=== PATIENT | male | born 1955 | race Caucasian/White ===

== ENCOUNTER 2017-11-29 10:45 | Inpatient (IN) ==
--- NOTE | 2017-11-29 11:57 | ED ---
HPI General Chief complaint: Arrhythmia / Palpitations Stated complaint: sob Time Seen by Provider: 11/29/17 11:52 History of Present Illness HPI narrative: 4-year-old male says he is not been feeling well for the last 2-1 /2 weeks. He has noted some increasing dyspnea on exertion. He gets some pressure in the neck area. He gets occasional sharp pain in the chest. He has noticed his symptoms primarily when he has been active and working. He has been doing a lot of work recently but just started having the symptoms the last 2-1/2 weeks. It seems to be getting worse. He has no history of heart disease. He did have a subarachnoid hemorrhage about 15 years ago. He was seen in the emergency department last Wednesday and a CTA at that time showed stable small aneurysm. He is on medication for his blood pressure and cholesterol. He has been taking aspirin recently. He smoked briefly when he was younger but has not smoked for a long time and has no history of heart disease. He has not had any edema or orthopnea Related Data Home Medications Medication Instructions Recorded Confirmed atorvastatin [Lipitor] 40 mg PO DAILY 11/29/17 11/29/17 lansoprazole [Prevacid] 30 mg PO DAILY 11/29/17 11/29/17 lisinopril-hydrochlorothiazide 1 tab PO DAILY 11/29/17 11/29/17 Allergies Allergy/AdvReac Type Severity Reaction Status Date / Time No Known Allergies Allergy Verified 11/29/17 11:00 Review of Systems ROS: all other systems reviewed are negative [facility] Medical History Medical History Barretts esophagus (Acute) Bleeding in brain due to brain aneurysm (Acute) High blood pressure (Acute) High cholesterol (Acute) Surgical History Surgical History H/O inguinal hernia repair (Acute) Hx of tonsillectomy (Acute) Social History Social History Substance History: No History of Abuse Second Hand Smoke Exposure: No Smoking Status: Never smoker How Often Do You Have a Drink Containing Alcohol: Monthly or less Recent Travel in [facility] within the Last 8 Weeks: No Recent Out of Country Travel within the Last 8 Weeks: No Immunization History Tetanus Immunization: <5 Years Exam Narrative Exam Narrative: GENERAL: Well developed male SKIN: Focused skin assessment warm/dry. HEAD: Atraumatic. Normocephalic. EYES: Pupils equal and round. No scleral icterus. No injection or drainage. ENT: No nasal bleeding or discharge. Mucous membranes pink and moist. NECK: Trachea midline. No JVD. CARDIOVASCULAR: Regular rate and rhythm. No murmur appreciated. RESPIRATORY: No accessory muscle use. Clear to auscultation. Breath sounds equal bilaterally. GASTROINTESTINAL: Abdomen soft, non-tender, nondistended. Hepatic and splenic margins not palpable. MUSCULOSKELETAL: No obvious deformities. No clubbing. No cyanosis. No edema. NEUROLOGICAL: Awake and alert. No obvious cranial nerve deficits. Motor grossly within normal limits. Normal speech. PSYCHIATRIC: Appropriate mood and affect; insight and judgment normal. Course Initial Documented Vital Signs Temperature 98 F 11/29/17 10:50 Pulse Rate 82 11/29/17 10:50 Respiratory Rate 20 11/29/17 10:50 Blood Pressure 124/65 11/29/17 10:50 Pulse Oximetry 98 11/29/17 10:50 Last Documented Vital Signs Temperature 98 F 11/29/17 10:50 Pulse Rate 64 11/29/17 13:56 Respiratory Rate 16 11/29/17 13:56 Blood Pressure 125/65 11/29/17 13:56 Pulse Oximetry 98 11/29/17 13:56 Medical Decision Making MDM Narrative Medical decision making narrative: Patient has symptoms which may be related to coronary artery disease he has exertional dyspnea associated with some pressure across his neck. EKG shows sinus rhythm. His d-dimer is elevated at 0.98. A CTA has been ordered and is negative for pulmonary embolus. His troponin is also elevated 0.22. case was discussed with Dr. Leonard who recommends transfer to the main hospital and heparin drip. Pattern of pain is suggestive of unstable angina Medical Screen Exam Complete: Yes Emergency Medical Condition: Yes Differential Diagnosis Differential Diagnosis: Differential includes CHF, coronary artery disease, pulmonary embolus Lab Data Result diagrams: 11/29/17 12:00 11/29/17 12:00 Lab Results 11/29/17 11/29/17 11/29/17 Range/Units 12:00 12:00 12:00 CBC w Diff Auto diff final WBC 6.5 (4.0-11.0) th/mm3 RBC 4.86 (4.50-5.90) mil/mm3 Hgb 14.9 (13.0-17.0) gm/dL Hct 43.2 (39.0-51.0) % MCV 89.0 (80.0-100.0) fL MCH 30.6 (27.0-34.0) pg MCHC 34.4 (32.0-36.0) % RDW 12.7 (11.6-17.2) % Plt Count 147 L (150-450) th/mm3 MPV 10.9 (7.0-11.0) fL Neut % (Auto) 50.6 (16.0-70.0) % Lymph % (Auto) 43.1 (9.0-44.0) % Chambers % (Auto) 4.8 (0.0-8.0) % Eos % (Auto) 1.0 (0.0-4.0) % Baso % (Auto) 0.5 (0.0-2.0) % Neut # (Auto) 3.3 (1.8-7.7) th/mm3 Lymph # (Auto) 2.8 (1.0-4.8) th/mm3 Chambers # (Auto) 0.3 (0.0-0.9) th/mm3 Eos # (Auto) 0.1 (0.0-0.4) th/mm3 Baso # (Auto) 0.0 (0.0-0.2) th/mm3 WBC Differential . Differential Comment . PT 10.8 (9.8-11.6) sec INR 1.1 Ratio APTT 27.9 (24.3-30.1) sec D-Dimer Quant (PE/DVT) 0.98 H (0.00-0.50) mg/L FEU Sodium 138 (136-145) meq/L Potassium 3.8 (3.5-5.1) meq/L Chloride 103 (98-107) meq/L Carbon Dioxide 25.7 (21.0-32.0) meq/L Anion Gap 9 (5-15) meq/L BUN 20 H (7-18) mg/dL Creatinine 1.00 (0.60-1.30) mg/dL Estimated GFR 76 L (>89) mL/min Random Glucose 102 (74-106) mg/dL Calcium 8.7 (8.5-10.1) mg/dL Total Bilirubin 0.6 (0.2-1.0) mg/dL AST 32 (15-37) U/L ALT 31 (12-78) U/L Alkaline Phosphatase 57 (45-117) U/L Troponin I 0.22 H (0.02-0.05) ng/mL B-Natriuretic Peptide (0-100) pg/mL Total Protein 7.3 (6.4-8.2) g/dL Albumin 4.2 (3.4-5.0) g/dL 11/29/17 Range/Units 12:00 CBC w Diff WBC (4.0-11.0) th/mm3 RBC (4.50-5.90) mil/mm3 Hgb (13.0-17.0) gm/dL Hct (39.0-51.0) % MCV (80.0-100.0) fL MCH (27.0-34.0) pg MCHC (32.0-36.0) % RDW (11.6-17.2) % Plt Count (150-450) th/mm3 MPV (7.0-11.0) fL Neut % (Auto) (16.0-70.0) % Lymph % (Auto) (9.0-44.0) % Chambers % (Auto) (0.0-8.0) % Eos % (Auto) (0.0-4.0) % Baso % (Auto) (0.0-2.0) % Neut # (Auto) (1.8-7.7) th/mm3 Lymph # (Auto) (1.0-4.8) th/mm3 Chambers # (Auto) (0.0-0.9) th/mm3 Eos # (Auto) (0.0-0.4) th/mm3 Baso # (Auto) (0.0-0.2) th/mm3 WBC Differential Differential Comment PT (9.8-11.6) sec INR Ratio APTT (24.3-30.1) sec D-Dimer Quant (PE/DVT) (0.00-0.50) mg/L FEU Sodium (136-145) meq/L Potassium (3.5-5.1) meq/L Chloride (98-107) meq/L Carbon Dioxide (21.0-32.0) meq/L Anion Gap (5-15) meq/L BUN (7-18) mg/dL Creatinine (0.60-1.30) mg/dL Estimated GFR (>89) mL/min Random Glucose (74-106) mg/dL Calcium (8.5-10.1) mg/dL Total Bilirubin (0.2-1.0) mg/dL AST (15-37) U/L ALT (12-78) U/L Alkaline Phosphatase (45-117) U/L Troponin I (0.02-0.05) ng/mL B-Natriuretic Peptide 15 (0-100) pg/mL Total Protein (6.4-8.2) g/dL Albumin (3.4-5.0) g/dL Imaging Data Radiologist's impression: Chest X-Ray 11/29/17 11:52 CONCLUSION: Negative examination. Chest CTA 11/29/17 13:14 CONCLUSION: 1. Isolated, subpleural cyst posteriorly in the right upper lung. Lungs are otherwise clear. 2. No pulmonary embolus. 3. 7 mm right renal artery aneurysm. Discharge Plan Discharge Disposition Patient Disposition: 30 Still Patient Discharge Details Diagnosis: Angina pectoris, unstable Physicians Team ED Provider: Harish Jacinto Primary Care Provider: Ervin Wright Rxs /Orders / Referrals /Forms Prescriptions: No Action atorvastatin [Lipitor] 40 mg Tablet 40 mg PO DAILY RF: 0 lisinopril-hydrochlorothiazide 20-12.5 mg Tablet 1 tab PO DAILY RF: 0 lansoprazole [Prevacid] 30 mg Capsule,Delayed Release(Dr/Ec) 30 mg PO DAILY RF: 0 Discharge Interventions Interventions: Vital Signs Last Done: 11/29/17 11:07 Status ED Status: With Doctor
[2017-11-29 12:11] LABS: Baso % (Auto) 0.5 % (0.0-2.0); Eos # (Auto) 0.1 th/mm3 (0.0-0.4); Hematocrit 43.2 % (39.0-51.0); Hemoglobin 14.9 gm/dL (13.0-17.0); Lymph # (Auto) 2.8 th/mm3 (1.0-4.8); Lymph % (Auto) 43.1 % (9.0-44.0); Mean Corpuscular HGB Conc 34.4 % (32.0-36.0); Mean Corpuscular Hemoglobin 30.6 pg (27.0-34.0); Mean Platelet Volume 10.9 fL (7.0-11.0); Mono # (Auto) 0.3 th/mm3 (0.0-0.9); Mono % (Auto) 4.8 % (0.0-8.0); Neut # (Auto) 3.3 th/mm3 (1.8-7.7); Neut % (Auto) 50.6 % (16.0-70.0); Platelet Count 147 th/mm3 (150-450); Red Blood Count 4.86 mil/mm3 (4.50-5.90); Red Cell Distribution Width 12.7 % (11.6-17.2); White Blood Count 6.5 th/mm3 (4.0-11.0)
[2017-11-29 12:13] LABS: Chloride 103 meq/L (98-107); Potassium 3.8 meq/L (3.5-5.1); Sodium 138 meq/L (136-145)
[2017-11-29 12:16] LABS: Calcium 8.7 mg/dL (8.5-10.1)
[2017-11-29 12:17] LABS: Albumin 4.2 g/dL (3.4-5.0); Anion Gap 9 meq/L (5-15); Blood Urea Nitrogen 20 mg/dL (7-18); Carbon Dioxide 25.7 meq/L (21.0-32.0); Glucose,Random 102 mg/dL (74-106)
[2017-11-29 12:20] LABS: Alanine Aminotransferase 31 U/L (12-78); Aspartate Aminotransferase 32 U/L (15-37); Glomerular Filtration Rate 76 mL/min (>89)
[2017-11-29 12:22] LABS: Total Protein 7.3 g/dL (6.4-8.2)
[2017-11-29 12:23] LABS: Alkaline Phosphatase 57 U/L (45-117)
[2017-11-29 12:25] LABS: Troponin I 0.22 ng/mL (0.02-0.05)
--- NOTE | 2017-11-29 12:38 | XR ---
EXAM DATE: 11/29/2017 11:52 AM EDT AGE/SEX: 61 years / Male INDICATIONS: Chest pain and shortness of breath for two weeks. CLINICAL DATA: This is the patient's initial encounter. Patient reports that signs and symptoms have been present for 2 weeks and indicates a pain score of 5/10. MEDICAL/SURGICAL HISTORY: . Aneurysm, intracranial. None. COMPARISON: None. FINDINGS: 2 frontal views of the chest demonstrate the lungs to be symmetrically aerated without evidence of ma ss, infiltrate or effusion. The cardiomediastinal contours are unremarkable. Osseous structures are intact. CONCLUSION: Negative examination. Electronically signed by: Dave Victor MD 11/29/2017 12:37 PM EDT
[2017-11-29 12:53] LABS: Activated Partial Thrombo Time 27.9 sec (24.3-30.1); INR 1.1 Ratio; Prothrombin Time 10.8 sec (9.8-11.6)
[2017-11-29 13:03] LABS: D-Dimer 0.98 mg/L FEU (0.00-0.50)
--- NOTE | 2017-11-29 14:47 | CT ---
EXAM DATE: 11/29/2017 1:29 PM EDT AGE/SEX: 61 years / Male INDICATIONS: Short of breath. CLINICAL DATA: This is the patient's initial encounter. Patient reports that signs and symptoms have been present for 1 day and indicates a pain score of 0/10. MEDICAL/SURGICAL HISTORY: Aneurysm, intracranial. Hypertension. Hypercholesterolemia. Castro's esophagus. Inguinal hernia repair. Tonsillectomy. RADIATION DOSE: 20.63 CTDI (mGy) COMPARISON: . TECHNIQUE: Volumetric scanning was performed using a multi-row detector CT scanner during bolus infu marjorie of 65 ml Omnipaque 350 (iohexol) nonionic water-soluble contrast as a single exam dose. The kwan a was post processed with a variety of visualization algorithms including full volume maximum intensi ty projection and sliding thin slab reformation. Using automated exposure control and adjustment of the mA and/or kV according to patient size, radiation dose was kept as low as reasonably achievable t o obtain optimal diagnostic quality images. DICOM format image data is available electronically for review and comparison. FINDINGS: Pulmonary Arteries: No filling defects are seen in the pulmonary arteries out to the subsegmental ve ssels. The left and right pulmonary arteries are normal in diameter. Lung: Subpleural cyst posteriorly in a perifissural distribution in the right upper lobe. Lungs are otherwise clear.. Effusion: None. Mediastinum: No evidence of mediastinal or hilar adenopathy. Other: The axilla is unremarkable. Also noted is a small, 7 mm right renal artery aneurysm. Main and accessory renal arteries bilaterally.. CONCLUSION: 1. Isolated, subpleural cyst posteriorly in the right upper lung. Lungs are otherwise clear. 2. No pulmonary embolus. 3. 7 mm right renal artery aneurysm. Electronically signed by: Mulugeta Chirinos MD 11/29/2017 2:46 PM EDT
[2017-11-29] MEDS ORDERED: Heparin 10,000 UNITS/10 ML Vial (for IV use) IV.PUSH STA (15:24)
[2017-11-29] MEDS ORDERED: Heparin Drip 25,000 UNIT/250 ML BAG IV.CONT PRN (15:24)
--- NOTE | 2017-11-29 17:10 | P.HP ---
History of Present Illness Service: [facility] hospitalist Primary Care Physician: Ervin Wright MD Chief Complaint: chest pain with sob History of Present Illness: HPI narrative: 61-year-old male says he is not been feeling well for the last 2- 1/2 weeks. He has noted some increasing dyspnea on exertion. He gets some pressure in the neck area. He gets occasional sharp pain in the chest. He has noticed his symptoms primarily when he has been active and working. He has been doing a lot of work recently but just started having the symptoms the last 2-1/2 weeks. 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 It seems to be getting worse. He has no history of heart disease. He did have a subarachnoid hemorrhage about 15 years ago. He was seen in the emergency department last Wednesday and a CTA at that time showed stable small aneurysm. He is on medication for his blood pressure and cholesterol. He has been taking aspirin recently. He smoked briefly when he was younger but has not smoked for a long time and has no history of heart disease. He has not had any edema or orthopnea but did have SOB and also some radiation to left neck , pain described as crampy,pressure like. In er had CTA thorax negative for PE but he did have elevated troponin level 2.2 ,cardiology notified and was started on heparin with cath planned for tomorrow. - Diagnosis (1) Chest pain (2) Hypertension (3) Hyperlipidemia Inpatient Certification: I certify that the inpatient services were ordered in accordance with Medicare regulations governing the order. This includes certification that hospital inpatient services are reasonable and necessary and in the case of services not specified as inpatient-only under 42 CFR 419.22(n), that they are appropriately provided as inpatient services in accordance to with the 2-midnight benchmark under 43 CFR 412.3(e) Review of Systems All other systems reviewed negative except as stated in HPI PMFSH - History History Provided By: Patient - Medical History Medical History: Medical History (Last Reviewed 11/29/17 @ 17:05 by Damien Dykes MD) Barretts esophagus Bleeding in brain due to brain aneurysm High blood pressure High cholesterol - Surgical History Surgical History: Surgical History (Last Reviewed 11/29/17 @ 17:05 by Damien Dykes MD) H/O inguinal hernia repair Hx of tonsillectomy - Tobacco History Second Hand Smoke Exposure: No Tobacco Use In Past 30 Days: No Smoking Status: Never smoker - Alcohol History How Often Do You Have a Drink Containing Alcohol: Monthly or less - Substance Use History Substance History: No History of Abuse - Travel History Recent Travel in the [place] Within the Last 8 Weeks: No Recent Travel Out of the Country Within the Last 8 Weeks: No - Immunization History Tetanus Immunization: <5 Years Medications and Allergies Active Medications: Active Medications Heparin Sodium/Dextrose (Heparin/D5w 25,000 U/250 Ml) 25,000 unit in 250 mls @ 0 mls/hr IV.CONT TITRATE PRN; Protocol PRN Reason: Per Protocol Last Admin: 11/29/17 15:44 Dose: 1,000 units/hr, 10 mls/hr Sodium Chloride (Ns Flush) 2 ml IV.FLUSH UNSCH PRN PRN Reason: FLUSH AFTER USING IV ACCESS Allergies Allergy/AdvReac Type Severity Reaction Status Date / Time No Known Allergies Allergy Verified 11/29/17 11:00 Home Medications Medication Instructions Recorded Confirmed Type atorvastatin [Lipitor] 40 mg PO DAILY 11/29/17 11/29/17 History lansoprazole [Prevacid] 30 mg PO DAILY 11/29/17 11/29/17 History lisinopril-hydrochlorothiazide 1 tab PO DAILY 11/29/17 11/29/17 History Exam Vital signs: Vital Signs 11/29/17 10:50 11/29/17 11:07 11/29/17 11:52 Temperature 98 F Pulse Rate 82 68 Respiratory Rate 20 16 Blood Pressure 124/65 121/68 Pulse Oximetry 98 98 98 11/29/17 13:56 11/29/17 16:19 Temperature Pulse Rate 64 59 L Respiratory Rate 16 16 Blood Pressure 125/65 114/74 Pulse Oximetry 98 98 Intake & Output 11/28/17 11/29/17 11/29/17 18:59 06:59 18:59 Weight 99.8 kg Narrative: GENERAL: SKIN: Warm and dry. HEAD: Atraumatic. Normocephalic. EYES: Pupils equal and round. No scleral icterus. No injection or drainage. ENT: No nasal bleeding or discharge. Mucous membranes pink and moist. NECK: Trachea midline. No JVD. CARDIOVASCULAR: Regular rate and rhythm. RESPIRATORY: No accessory muscle use. Clear to auscultation. Breath sounds equal bilaterally. GASTROINTESTINAL: Abdomen soft, non-tender, nondistended. Hepatic and splenic margins not palpable. MUSCULOSKELETAL: Extremities without clubbing, cyanosis, or edema. No obvious deformities. NEUROLOGICAL: Awake and alert. No obvious cranial nerve deficits. Motor grossly within normal limits. Five out of 5 muscle strength in the arms and legs. Normal speech. PSYCHIATRIC: Appropriate mood and affect; insight and judgment normal. Results - Labs CBC & Chem 7: 11/29/17 12:00 11/29/17 12:00 Labs: Laboratory Results - last 24 hr 11/29/17 11/29/17 11/29/17 12:00 12:00 12:00 CBC w Diff Auto diff final WBC 6.5 RBC 4.86 Hgb 14.9 Hct 43.2 MCV 89.0 MCH 30.6 MCHC 34.4 RDW 12.7 Plt Count 147 L MPV 10.9 Neut % (Auto) 50.6 Lymph % (Auto) 43.1 Ransom % (Auto) 4.8 Eos % (Auto) 1.0 Baso % (Auto) 0.5 Neut # (Auto) 3.3 Lymph # (Auto) 2.8 Ransom # (Auto) 0.3 Eos # (Auto) 0.1 Baso # (Auto) 0.0 WBC Differential . Differential Comment . PT 10.8 INR 1.1 APTT 27.9 D-Dimer Quant (PE/DVT) 0.98 H Sodium 138 Potassium 3.8 Chloride 103 Carbon Dioxide 25.7 Anion Gap 9 BUN 20 H Creatinine 1.00 Estimated GFR 76 L Random Glucose 102 Calcium 8.7 Total Bilirubin 0.6 AST 32 ALT 31 Alkaline Phosphatase 57 Troponin I 0.22 H B-Natriuretic Peptide Total Protein 7.3 Albumin 4.2 11/29/17 12:00 CBC w Diff WBC RBC Hgb Hct MCV MCH MCHC RDW Plt Count MPV Neut % (Auto) Lymph % (Auto) Ransom % (Auto) Eos % (Auto) Baso % (Auto) Neut # (Auto) Lymph # (Auto) Ransom # (Auto) Eos # (Auto) Baso # (Auto) WBC Differential Differential Comment PT INR APTT D-Dimer Quant (PE/DVT) Sodium Potassium Chloride Carbon Dioxide Anion Gap BUN Creatinine Estimated GFR Random Glucose Calcium Total Bilirubin AST ALT Alkaline Phosphatase Troponin I B-Natriuretic Peptide 15 Total Protein Albumin - Imaging Impressions Chest X-Ray 11/29/17 11:52 CONCLUSION: Negative examination. Chest CTA 11/29/17 13:14 CONCLUSION: 1. Isolated, subpleural cyst posteriorly in the right upper lung. Lungs are otherwise clear. 2. No pulmonary embolus. 3. 7 mm right renal artery aneurysm. Caprini VTE Risk Assessment Caprini VTE Risk Assessment: Moderate/High Risk (score >= 2) Caprini Risk Assessment Model: Point Value = 1 Point Value = 2 Point Value = 3 Point Value = 5 Age 41-60 Minor surgery BMI > 25 kg/m2 Swollen legs Varicose veins or History of unexplained or recurrent spontaneous Oral contraceptives or hormone replacement Sepsis (< 1 month) Serious lung disease, including pneumonia (< 1 month) Abnormal pulmonary function Acute myocardial infarction Congestive heart failure (< 1 month) History of inflammatory bowel disease Medical patient at bed rest Age 61-74 Arthroscopic surgery Major open surgery (> 45 min) Laparoscopic surgery (> 45 min) Malignancy Confined to bed (> 72 hours) Immobilizing plaster cast Central venous access Age >= 75 History of VTE Family history of VTE Factor V Leiden Prothrombin [id number] Lupus anticoagulant Anticardiolipin antibodies Elevated serum homocysteine Heparin-induced thrombocytopenia Other congenital or acquired thrombophilia Stroke (< 1 month) Elective arthroplasty Hip, pelvis, or leg fracture Acute spinal cord injury (< 1 month) Prophylaxis Regimen: Total Risk Factor Score Risk Level Prophylaxis Regimen 0-1 Low Early ambulation 2 Moderate Order ONE of the following: *Sequential Compression Device (SCD) *Heparin 5000 units SQ BID 3-4 Higher Order ONE of the following medications: *Heparin 5000 units SQ TID *Enoxaparin/Lovenox 40 mg SQ daily (WT < 150 kg, CrCl > 30 mL/min) *Enoxaparin/Lovenox 30 mg SQ daily (WT < 150 kg, CrCl > 10-29 mL/min) *Enoxaparin/Lovenox 30 mg SQ BID (WT < 150 kg, CrCl > 30 mL/min) AND/OR *Sequential Compression Device (SCD) 5 or more Highest Order ONE of the following medications: *Heparin 5000 units SQ TID (Preferred with Epidurals) *Enoxaparin/Lovenox 40 mg SQ daily (WT < 150 kg, CrCl > 30 mL/min) *Enoxaparin/Lovenox 30 mg SQ daily (WT < 150 kg, CrCl > 10-29 mL/min) *Enoxaparin/Lovenox 30 mg SQ BID (WT < 150 kg, CrCl > 30 mL/min) AND *Sequential Compression Device (SCD) Assessment and Plan - Assessment (1) Chest pain Code(s): R07.9 - Chest pain, unspecified Status: Acute Plan: for CATH in am no bed available in main will place in ICU consult cardiology they are already aware continue heparin add ntg paste. (2) Hypertension Code(s): I10 - Essential (primary) hypertension Status: Acute Plan: continue home meds (3) Hyperlipidemia Code(s): E78.5 - Hyperlipidemia, unspecified Status: Acute Plan: continue home med - Plan further plan as case develops Code Status: full Discussed Condition With: patient
[2017-11-29] MEDS ORDERED: Morphine Sulfate Inj 2 MG/ML Vial IV.PUSH PRN (17:16)
[2017-11-29] MEDS ORDERED: Acetaminophen 325 MG Tablet PO PRN (17:16)
[2017-11-29] MEDS ORDERED: Bisacodyl 10 MG Supp RECTAL PRN (17:16)
[2017-11-29 19:09] LABS: Troponin I 0.2 ng/mL (0.02-0.05)
[2017-11-29] MEDS: Senna/Docusate Sodium 8.6/50 MG Tablet PO SCH (20:44)
[2017-11-29 23:03] LABS: Troponin I 0.21 ng/mL (0.02-0.05)
[2017-11-30] MEDS ORDERED: Chlorhexidine Gluconate 2% 1 Pack (2 Cloths) TOPICAL PRN (04:00)
[2017-11-30] MEDS ORDERED: Chlorhexidine Gluconate 2% 1 Pack (2 Cloths) TOPICAL SCH (04:00)
[2017-11-30 04:58] LABS: Hematocrit 41.5 % (39.0-51.0); Hemoglobin 14.7 gm/dL (13.0-17.0); Mean Corpuscular HGB Conc 35.4 % (32.0-36.0); Mean Corpuscular Hemoglobin 31.1 pg (27.0-34.0); Mean Corpuscular Volume 87.8 fL (80.0-100.0); Mean Platelet Volume 10.5 fL (7.0-11.0); Platelet Count 146 th/mm3 (150-450); Red Blood Count 4.73 mil/mm3 (4.50-5.90); Red Cell Distribution Width 12.7 % (11.6-17.2); White Blood Count 6.7 th/mm3 (4.0-11.0)
[2017-11-30 05:15] LABS: Troponin I 0.19 ng/mL (0.02-0.05)
--- NOTE | 2017-11-30 08:26 | P.CONCA ---
History of Present Illness Primary Care Provider: Ervin Wright MD Chief Complaint: chest pain with sob History of Present Illness: 61-year-old male with a past medical history of HTN, HLD, GERD, and spontaneous intracranial aneurysmal bleeding about 15 years ago. The patient presented for chest tightness and shortness of breath. The patient states that 3 weeks ago he was able to move 15 bags of concrete with no issues or symptoms. He states for the past 2-1/2 weeks he has been having chest tightness and shortness of breath with any kind of exertion, for instance he can no longer move one bag of concrete without symptoms. He states symptoms last longer than 5 minutes and are relieved with rest. Troponins approximately 0.2 x 4. EKG with NSR. Chest CT with no intrathoracic process including PE. Patient reports no prior intervention to intracranial aneurysm and no further bleeding issues since blood pressure has been controlled. 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 Review of Systems All other systems reviewed negative except as stated in HPI PMFSH - History History Provided By: Patient - Medical History Medical History: Medical History (Last Reviewed 11/29/17 @ 17:05 by Damien Dykes MD) Barretts esophagus Bleeding in brain due to brain aneurysm High blood pressure High cholesterol - Surgical History Surgical History: Surgical History (Last Reviewed 11/29/17 @ 17:05 by Damien Dykes MD) H/O inguinal hernia repair Hx of tonsillectomy - Tobacco History Second Hand Smoke Exposure: No Tobacco Use In Past 30 Days: No Smoking Status: Former smoker - Alcohol History How Often Do You Have a Drink Containing Alcohol: 2 to 3 times a week - Substance Use History Substance History: No History of Abuse - Travel History Recent Travel in the [place] Within the Last 8 Weeks: No Recent Travel Out of the Country Within the Last 8 Weeks: No - Immunization History Tetanus Immunization: <5 Years Hx Influenza Vaccine This Season: No Medications and Allergies Allergies Allergy/AdvReac Type Severity Reaction Status Date / Time No Known Allergies Allergy Verified 11/29/17 11:00 Home Medications Medication Instructions Recorded Confirmed Type atorvastatin [Lipitor] 40 mg PO DAILY 11/29/17 11/29/17 History lansoprazole [Prevacid] 30 mg PO DAILY 11/29/17 11/29/17 History lisinopril-hydrochlorothiazide 1 tab PO DAILY 11/29/17 11/29/17 History Active Medications: Active Medications Acetaminophen (Tylenol) 650 mg PO Q6H PRN PRN Reason: PAIN 1-5AND/OR FEVER >101F Al Hydroxide/Mg Hydroxide (Milk Of Magnesia Liq) 30 ml PO Q12H PRN PRN Reason: Mild Constipation Atorvastatin Calcium (Lipitor) 40 mg PO DAILY [facility] Bisacodyl (Dulcolax Supp) 10 mg RECTAL DAILY PRN PRN Reason: SEVERE CONSITIPATION Chlorhexidine Gluconate (Chlorhexidine 2% Cloth) 3 pack TOPICAL DAILY@0400 [facility] Stop: 12/05/17 03:59 Last Admin: 11/30/17 05:09 Dose: 3 pack Chlorhexidine Gluconate (Chlorhexidine 2% Cloth) 3 pack TOPICAL DAILY@0400 PRN PRN Reason: Extra cloth needed Stop: 12/05/17 03:59 Hydrochlorothiazide (Microzide) 12.5 mg PO DAILY [facility] Heparin Sodium/Dextrose (Heparin/D5w 25,000 U/250 Ml) 25,000 unit in 250 mls @ 0 mls/hr IV.CONT TITRATE PRN; Protocol PRN Reason: Per Protocol Last Admin: 11/29/17 15:44 Dose: 1,000 units/hr, 10 mls/hr Lactulose (Lactulose Liq) 30 ml PO DAILY PRN PRN Reason: SEVERE CONSITIPATION Lisinopril (Prinivil) 20 mg PO DAILY [facility] Morphine Sulfate (Morphine Inj) 2 mg IV.PUSH Q4H PRN PRN Reason: PAIN SCALE 6 TO 10 Nitroglycerin (Nitro-Bid 2% Oint) 1 inch TOPICAL Q6HR [facility] Last Admin: 11/30/17 05:43 Dose: 1 inch Ondansetron HCl (Zofran Inj) 4 mg IV.PUSH Q6H PRN PRN Reason: NAUSEA OR VOMITING Pantoprazole Sodium (Protonix) 40 mg PO DAILY [facility] Senna/Docusate Sodium (Natalia-Colace) 1 tab PO BID [facility] Last Admin: 11/29/17 20:44 Dose: 1 tab Sennosides (Senokot) 17.2 mg PO Q12H PRN PRN Reason: Moderate Constipation Sodium Chloride (Ns Flush) 2 ml IV.FLUSH PRN PRN PRN Reason: FLUSH AFTER USING IV ACCESS Sodium Chloride (Ns Flush) 2 ml IV.FLUSH BID TAMIKA Last Admin: 11/29/17 20:44 Dose: Not Given Exam Vital signs: Vital Signs 11/29/17 10:50 11/29/17 11:07 11/29/17 11:52 Temperature 98 F Pulse Rate 82 68 Respiratory Rate 20 16 Blood Pressure 124/65 121/68 Pulse Oximetry 98 98 98 11/29/17 13:56 11/29/17 16:19 11/29/17 18:00 Temperature Pulse Rate 64 59 L 72 Respiratory Rate 16 16 23 Blood Pressure 125/65 114/74 124/69 Pulse Oximetry 98 98 96 11/29/17 19:00 11/29/17 19:25 11/29/17 20:00 Temperature 98.9 F Pulse Rate 72 64 Respiratory Rate 17 25 H Blood Pressure 119/67 142/69 H Pulse Oximetry 97 97 96 11/29/17 21:00 11/29/17 22:00 11/29/17 23:00 Temperature Pulse Rate 62 60 56 L Respiratory Rate 22 23 19 Blood Pressure 135/62 111/53 L 116/72 Pulse Oximetry 96 11/30/17 00:00 11/30/17 01:00 11/30/17 02:00 Temperature 98.0 F Pulse Rate 54 L 65 66 Respiratory Rate 22 16 16 Blood Pressure 120/67 108/62 108/62 Pulse Oximetry 97 96 11/30/17 03:00 11/30/17 04:00 11/30/17 05:00 Temperature 97.7 F Pulse Rate 54 L 52 L 54 L Respiratory Rate 19 18 17 Blood Pressure 111/67 108/62 118/75 Pulse Oximetry 96 96 96 11/30/17 06:00 Temperature Pulse Rate 60 Respiratory Rate 26 H Blood Pressure 110/65 Pulse Oximetry Intake & Output 11/29/17 11/30/17 11/30/17 18:59 06:59 18:59 Intake Total 240 / 240 Output Total 650 / 650 Balance 240 / 240 -650 / -650 Weight 217 lb 6.012 oz 217 lb 13.067 oz 217 lb 2.485 oz Intake: Oral 240 / 240 Output: Urine 650 / 650 Other: Date of Last Bowel Movement 11/29/17 11/29/17 Weight On Admission 220 lb 0.341 oz Narrative: GENERAL: Well-developed well-nourished. In no acute distress. NECK: No carotid bruits. No JVD. CARDIOVASCULAR: Regular rate and rhythm. No murmur appreciated. RESPIRATORY: No accessory muscle use. Clear to auscultation. Breath sounds equal bilaterally. MUSCULOSKELETAL: No clubbing or cyanosis. No edema. NEUROLOGICAL: Awake and alert. Normal speech. Results 11/30/17 04:42 11/29/17 12:00 Cardiac Enzymes 11/29/17 11/29/17 11/29/17 Range/Units 12:00 12:00 18:11 AST 32 (15-37) U/L Troponin I 0.22 H 0.20 H (0.02-0.05) ng/mL B-Natriuretic Peptide 15 (0-100) pg/mL 11/29/17 11/30/17 Range/Units 22:30 04:42 AST (15-37) U/L Troponin I 0.21 H 0.19 H (0.02-0.05) ng/mL B-Natriuretic Peptide (0-100) pg/mL Coagulation 11/29/17 11/29/17 11/29/17 Range/Units 12:00 12:00 18:11 PT 10.8 (9.8-11.6) sec APTT 27.9 64.6 H D (24.3-30.1) sec B-Natriuretic Peptide 15 (0-100) pg/mL 11/30/17 11/30/17 Range/Units 00:30 04:42 PT (9.8-11.6) sec APTT 47.1 H D 52.9 H (24.3-30.1) sec B-Natriuretic Peptide (0-100) pg/mL CBC 11/29/17 11/30/17 Range/Units 12:00 04:42 WBC 6.5 6.7 (4.0-11.0) th/mm3 RBC 4.86 4.73 (4.50-5.90) mil/mm3 Hgb 14.9 14.7 (13.0-17.0) gm/dL Hct 43.2 41.5 (39.0-51.0) % Plt Count 147 L 146 L (150-450) th/mm3 Neut # (Auto) 3.3 (1.8-7.7) th/mm3 Lymph # (Auto) 2.8 (1.0-4.8) th/mm3 [place] # (Auto) 0.3 (0.0-0.9) th/mm3 Eos # (Auto) 0.1 (0.0-0.4) th/mm3 Baso # (Auto) 0.0 (0.0-0.2) th/mm3 Comprehensive Metabolic Panel 11/29/17 Range/Units 12:00 Sodium 138 (136-145) meq/L Potassium 3.8 (3.5-5.1) meq/L Chloride 103 (98-107) meq/L Carbon Dioxide 25.7 (21.0-32.0) meq/L BUN 20 H (7-18) mg/dL Creatinine 1.00 (0.60-1.30) mg/dL Calcium 8.7 (8.5-10.1) mg/dL AST 32 (15-37) U/L ALT 31 (12-78) U/L Alkaline Phosphatase 57 (45-117) U/L Total Protein 7.3 (6.4-8.2) g/dL Albumin 4.2 (3.4-5.0) g/dL Intake and Output 11/29/17 11/30/17 11/30/17 22:59 06:59 14:59 Intake Total 240 / 240 Output Total 650 / 650 Balance 240 / 240 -650 / -650 Intake: Oral 240 / 240 Output: Urine 650 / 650 Other: Date of Last Bowel Movement 11/29/17 11/29/17 Weight 217 lb 6.012 oz 217 lb 13.067 oz 217 lb 2.485 oz Weight On Admission 220 lb 0.341 oz Patient Weight 12/01/17 06:59 Weight 217 lb 2.485 oz - Imaging and Cardiology Imaging: Impressions Chest X-Ray 11/29/17 11:52 CONCLUSION: Negative examination. Chest CTA 11/29/17 13:14 CONCLUSION: 1. Isolated, subpleural cyst posteriorly in the right upper lung. Lungs are otherwise clear. 2. No pulmonary embolus. 3. 7 mm right renal artery aneurysm. Assessment and Plan - Plan 61-year-old male with a past medical history of HTN, HLD, GERD, and spontaneous intracranial aneurysmal bleeding about 15 years ago who presented for exertional chest tightness and shortness of breath. Typical anginal pain with elevated troponin: Probable NSTEMI. Continue heparin GTT. N.p.o. for LHC today. Contacted Dr. Morton with neurosurgery regarding aneurysm and need for LHC, can proceed with left heart cath is normal from neurosurgery perspective. Discussed Condition With: Patient, Dr. Leonard - Attending Attestation agree with above PCI proximal and distal RCA DOC asa plavix BB statin DC planning
[2017-11-30] MEDS: Senna/Docusate Sodium 8.6/50 MG Tablet PO SCH (08:33)
[2017-11-30] MEDS ORDERED: Lisinopril 20 MG Tablet PO SCH (09:00)
[2017-11-30] MEDS ORDERED: Heparin/NS PF Inj 1,000 ML ONE (10:58)
[2017-11-30] MEDS ORDERED: Heparin 10,000 UNITS/10 ML Vial (for IV use) ONE (10:58)
[2017-11-30] MEDS ORDERED: fentaNYL Citrate Inj 100 MCG/2 ML Ampul ONE (10:58)
[2017-11-30 11:25] VITALS: RESP 20
[2017-11-30] MEDS ORDERED: Sodium Chlor 0.9% Inj 250 ML IV.SIG ONE (11:54)
[2017-11-30] MEDS ORDERED: Misc Info for Pharmacy OTHER STA (11:54)
[2017-11-30] MEDS ORDERED: Atropine Inj 1 MG/ML Vial IV.PUSH PRN (11:54)
--- NOTE | 2017-11-30 12:03 | P.PCN ---
Date of procedure: 11/30/17 Pre-op diagnosis: Non-ST elevation myocardial infarction Procedure: Procedures performed: 1. Fluoroscopy with interpretation 2. Coronary angiography 3. Percutaneous coronary intervention with drug-eluting stents to the proximal and distal right coronary artery Methods: Risks, benefits, and alternatives were discussed with the patient. Patient understood consented to the procedure. Patient was brought into the catheterization lab and placed on catheterization table. Right wrist was prepped and draped in sterile fashion. Right wrist was anesthetized with 2% lidocaine. Right radial artery was cannulated and a 6 Lao 7 cm sheath was placed without difficulty. 200 mcg of intra-arterial nitroglycerin and 5000 units of intravenous heparin was administered. Coronary angiography: 1. Left main coronary has 30% stenosis in the proximal to mid segment 2. Left anterior descending cord is large caliber size vessel with a large diagonal branch which has only minor luminal irregularities 3. Left circumflex gives rise to a large ramus intermedius branch is widely patent there is a small obtuse marginal branch does appear to have a chronic total occlusion there is left to left collaterals present. 4. The right coronary is very large dominant vessel there is a 99% stenosis in the proximal segment and a 90% stenosis in the distal right coronary artery just prior to the bifurcation of the posterior descending branch. Next Percutaneous coronary intervention: Right coronary circulation was selectively engaged with 6 Lao JR 5 guide catheter. 0.014 inch 180 cm Terumo run through wire was navigated down to the distal posterior descending branch. Angiomax was administered throughout the entire procedure to maintain appropriate anticoagulation. A 3.5 x 12 mm Rx you for balloon was deployed in the proximal right coronary artery a 3.0 x 12 mm Rx you for balloon was deployed in the distal right coronary artery repeat angiography showed LINH-3 flow but severe residual stenosis. A 2.75 x 22 mm Rx resolute Everardo stent was advanced onto the distal right coronary artery extending into the posterior descending branch and deployed to 14 aleksander. Repeat angiography showed no residual stenosis with LINH-3 flow. A 5.0 x 22 mm Rx resolute Everardo stent was then deployed in the proximal right coronary artery to 14 ale[place]ander. Repeat angiography showed no residual stenosis with LINH-3 flow. Left coronary circulation was slightly engaged a 6 Lao XB 3.5 guide catheter. A 0.014 280 cm tumor want to wire navigated down to the first obtuse marginal branch several brief attempts were made to see if we could cross the occlusion. Was not entirely clear if there was a small channel there. After several times that it appears that this is a chronic occlusion without a channel and that is collateralized with left to left collateralization. Conclusions: 1. Severe two-vessel coronary disease involving the right coronary artery and first obtuse marginal branch 2. Successful percutaneous coronary intervention of the right coronary artery with 2 drug-eluting stents 3. Chronic occlusion of the first obtuse marginal branch Plan: Patient will be monitored closely for any postprocedural complications. Hopefully this will translate well to symptomatic improvement. Patient be continued on aspirin, Plavix, beta-jenny, and statin therapy. Patient is on angiotensin-converting enzyme inhibitor. We will discontinue nitrate therapy for now, unless the patient develops anginal symptoms related to the chronic occlusion. At this point it is a small caliber size vessel and appears to be chronic and therefore no need for any aggressive intervention. If the patient has residual symptoms despite aggressive guideline directed medical therapy, we can make an attempt to cross through the short occlusion, but at this time there is no indication to do so. If the patient does well throughout the day, there is a chance we may be able to discharge him later today with outpatient follow-up.
--- NOTE | 2017-11-30 12:17 | CATHPROC ---
[employer] HIS Report Study Information Study Number Admission Scheduled Start Study Start [id number] Nov 29 2017 3:37PM 11/30/2017 Nov 30 2017 10:44AM [place] [facility] Cardiac Pacer/ICD Admit Source Facility Department Emergency department [facility] - Print Production Manager Physician and Clinical Staff Initial Abelino Andrade Instructional Supervisor Deloris Savage,Demetri Galeano RN Recorder Carmen Acosta,BUILDING MAINTENANCE SUPERVISOR TECH2 Scrub Blanca Daley,ASSEMBLER TRACTOR TECH2 Scrub Aylin Cross,ELIUD Procedures Performed Procedure Location (Site) Vessel Name Coronary Angiograms LCA Left Coronary Coronary Angiograms RCA Right Coronary Drug Eluting Inflatio RCA Dist Right Coronary Drug Eluting Inflatio RCA Prox Right Coronary PTCA RCA Dist Right Coronary PTCA RCA Prox Right Coronary Wire insertion Radial (right) Radial Art. Equipment Time Benchroom Shop Optician Description Size Mfg Part Number Used/Scraped COPILOT VALVE, BLEEDBACK [id number] 11:18 [employer] Used CONTROL *[id number] TRANSDUCER, TRUWAVE [id number] 10:47 GOLDEN WALKER * Used W/STOCKCOCK *[id number] *[id number] [phone] *[id number] [id number] *[id number] [phone] *[id number] 10:47 [employer] BLANKET,WARM AIR CCL * Used *[id number] 10:47 [employer] PACK, CCL CUSTOM * Used *[id number] 10:47 [employer] SUPPORT, ARTERIAL ADULT [id number] *[id number] Used [id number] 11:26 [employer] BALLOON, 3.0 X 12MM EUPHORA 12MM Used *[id number] 11:25 [employer] BALLOON, 3.5 X 10MM EUPHORA 3.5 X 10 [id number] Used [id number] 11:32 [employer] STENT, 2.75 22MM RENATO 2.75 22MM Used *[id number] 11:36 [employer] STENT, 5.0 22MM RENATO 5.0 22MM Used *[id number] 11:25 ALEXANDALEXA 30 EDITA INDEFLATOR Used *[id number] BAND, RADIAL COMPRESSION TR [id number] 11:47 [employer] MEDICAL 24CM Used SHORT 24 *[id number] SHEATH, FR6 RADIAL PRELUDE 10:47 ALEXANDALEXA FR 6 [id number] Used EASE 11CM [id number] 10:47 ALEXANDALEXA WIRE, EXCHANGE 260CM 3MMJ 260CM Used *[id number] 10:47 NAMIC MANIFOLD, 4 PORT * Used *[id number] 10:47 [employer] OMNIPAQUE, 350 MG, 150ML 150ML [id number] Used 11:38 [employer] OMNIPAQUE, 350 MG, 150ML 150ML [id number] Used WIRE, RUNTHROUGH NS FLOPPY [id number] 11:17 [employer] 180CM Used .014 180CM *[id number] WIRE, RUNTHROUGH NS FLOPPY [id number] 11:41 [employer] 180CM Used .014 180CM *[id number] WIRE, RUNTHROUGH NS FLOPPY 25-1011 11:42 [employer] 180CM Used .014 180CM *[id number] Equipment Model, Serial, Lot Number and Expiration Data Description Model Number Serial Number Lot Number Expiration Date STENT, 2.75 22MM RENATO [id number] 06-13-2019 History: Current Medications Medication Dosage/Unit Route Frequency Last Date/Time Taken LIPITOR LISINOPRIL History: Allergies Allergy Reaction No Known Allergies History: Risk Factors Family History of Hypertension Dyslipidemia Previous MS Previous Heart Failure Premature CAD Yes Yes Yes No No Prior Valve Prior PCI Prior CABG Surgery No No No Cerebrovascular Peripheral Artery Chronic Lung On Dialysis Diabetes Disease Disease Disease No Yes No No No History: Symptoms/Diagnosis Selection Items Chest pain MOYA SOB History: Stress Tests Stress or Imaging Studies Performed No History: Other Disease Selection Items Gerd History: Other Current Smoker Method Quit Packs a Day Years Used Pack Years No Cigarettes 45 Years Ago 1 1 1 Labs Hgb (g/dl) Hct (%) Platelets (thousands) 11.60-17.00 35.00-51.00 150.00-450.00 14.7 41.5 146 Glucose (mg/dl) BUN (mg/dl) Creatinine (mg/dl) BUN:Creatinine (1:x) 74.00-106.00 7.00-18.00 0.50-1.30 10.00-20.00 102 20 1.0 20 Na (meq/l) K (meq/l) 136.00-145.00 3.50-5.10 138 3.8 INR (PTT:PT) 0.90-1.10 1.1 Troponin I (ng/ml) CPK (u/l) CPK-MB (ng/ML) 0.02-0.05 26.00-308.00 0.50-3.60 0.19 157 Not Drawn Medication Medication Total Dose (Bolus/Oral) Medication Total Dosage/Unit 1% XYLOCAINE 20 mL ANGIOMAX BOLUS 15 mL FENTANYL 50 mcg HEPARIN 5000 units NTG (IC) 600 mcg PLAVIX 600 mg VERSED 2 mg Medications (Bolus/Oral) Medication Time Given Dosage/Unit Administered By Reason VERSED 11/30/2017 10:59:39 AM 2 mg Deloris Savage 2 mg VERSED given in lab by Deloris Savage, DARLENE in Right Antecubital via Peripheral IV. Ordered by Abelino Franklin. FENTANYL 11/30/2017 11:00:39 AM 50 mcg Deloris Savage 50 mcg FENTANYL given in lab by Deloris Savage RN in Right Antecubital via Peripheral IV. Ordered b Abelino Dixon. 1% XYLOCAINE 11/30/2017 11:00:57 AM 20 mL Deloris Savage 20 mL 1% XYLOCAINE given in lab by Deloris Savage RN via Subcutaneous. Ordered by Abelino Leonard. NTG (IC) 11/30/2017 11:05:08 AM 200 mcg Abelino Leonard 200 mcg NTG (IC) given in lab by Abelino Leonard in Right Radial via Intra-arterial. Ordered by Abelino Leonard. HEPARIN 11/30/2017 11:08:44 AM 5000 units Abelino Leonard 5000 units HEPARIN given in lab by Abelino Leonard in Right Antecubital via Peripheral IV. Ordered by Abelino Leonard. ANGIOMAX BOLUS 11/30/2017 11:19:38 AM 15 mL Deloris Savage 15 mL ANGIOMAX BOLUS given in lab by Deloris Savage RN in Right Antecubital via Peripheral IV. Orde red by Abelino Leonard. NTG (IC) 11/30/2017 11:32:47 AM 200 mcg Abelino Leonard 200 mcg NTG (IC) given in lab by Abelino Leonard via Intra-coronary. Ordered by Abelino Leonard. NTG (IC) 11/30/2017 11:36:52 AM 200 mcg Abelino Leonard 200 mcg NTG (IC) given in lab by Abelino Leonard via Intra-coronary. Ordered by Abelino Leonard. PLAVIX 11/30/2017 11:52:35 AM 600 mg Demetri Horton 600 mg PLAVIX given in lab by Demetri Horton, DARLENE via Oral. Ordered by Abelino Leonard. Medication (Drip) Medication Time Given Dosage/Unit Concentration/Unit Diluent (ml) Solutio n ANGIOMAX DRIP 11/30/2017 11:23:22 AM 1.75 mg/kg/hr 250 mg 50 NaCl .9 1.75 mg/kg/hr ANGIOMAX DRIP given in lab by Deloris Savage, DARLENE in Right Antecubital via Peripheral I V. Pump/Drip Flow = 34.48 ml/hr using NaCl .9 with a concentration of 250 mg in 50 ml. Ordered by Abelino Leonard. IV Solutions 11/30/2017 10:47:15 AM 0 mL (IV) 500 NaCl .9 IV Solutions given in lab by Demetri Horton RN in Left Antecubital via Peripheral IV. Pump/Drip Flow = 20 ml/hr using NaCl .9. Initial Case Assessment Cardiovascular HR Rhythm NIBP Chest Pain 57 sr 134/78 0 Circulatory - Right Pulses Dorsalis Pedis Femoral Radial 3 3 3 Scale (0,1,2,3,4,d) Circulatory - Left Pulses Dorsalis Pedis Femoral Radial 3 3 Scale (0,1,2,3,4,d) Neurological State Oriented to time-place- Alert Moves all extremities person Respiration - General Respiration Rate SpO2 (%) (B/min) 10 98 Final Case Assessment Cardiovascular HR Rhythm NIBP Chest Pain 52 sb 144/82 0 Circulatory - Right Pulses Dorsalis Pedis Femoral Radial 3 3 3 Scale (0,1,2,3,4,d) Circulatory - Left Pulses Dorsalis Pedis Femoral Radial 3 3 Scale (0,1,2,3,4,d) Neurological State Oriented to time-place- Alert Moves all extremities person Respiration - General Respiration Rate SpO2 (%) (B/min) 11 96 Chronological Log Time Study Chronological Log 10:41:38 Patient arrived via Bed. Heparin drip 1000 Units/hr discontinued at 10:30 prior to Print Production Manager arrival. 10:41:42 Patient Name, D.O.B, / Armband Verified By R.N. 10:46:47 Consent signed by the physician and the patient and verified by the Print Production Manager staff. 10:46:48 Pre-op and post- op instructions given; patient acknowledges understanding of instructions. 10:46:49 Verbal Stimulation=2 Physical Stimulation=2 Airway=2 Respiration=2 TOTAL=8. (0=absent, 1=li mited, 2=present) 10:47:00 Presedation assessment performed by Print Production Manager RN. 10:47:03 Allens test performed on the left radial and ulnar artery. 10:47:06 Allens test performed on the right radial and ulnar artery. 10:47:10 Patient has been NPO for More than 6Hrs. 10:47:11 Skin Breakdown-none 10:47:12 Jennifer Prominences Protected 10:47:14 A # 20 IV was noted in the Antecubital (right). Grade = 0 IV Solutions given in lab by Demetri Horton, DARLENE in Left Antecubital via Peripheral IV. Pump/Dri p Flow = 20 ml/hr using 10:47:15 NaCl .9. 10:47:16 History and physical on the chart or being dictated. Vitals capture started with the following parameters, Patient=Adult, Interval=5 min, Initial Pr gvdshi=140 mmHg, :47:38 Deflation Rate=5 mmHg, Cuff placed on Left Arm 10:48:06 A # 20 IV was noted in the Antecubital (left). Grade = 0 Vitals capture started with the following parameters, Patient=Adult, Interval=5 min, Initial Pr ztlyjc=739 mmHg, :49:47 Deflation Rate=5 mmHg, Cuff placed on Left Arm 10:50:26 HR=54 bpm, XIJP=875/79 mmhg, Resp=17 B/min 10:54:03 MD arrived. 10:55:14 Right groin and right radial prepped with 2% chlorhexidine, and draped after a 3 min. waiti ng time. 10:55:27 HR=57 bpm, CYNT=879/78 mmhg, SpO2=98.0 %, Resp=19 B/min, Pain=0, Gary=10, Fonseca=2 10:56:36 Reference ECG taken Assessment: Initial Case, HR=57 BPM, Rhythm=sr, TTXT=827/78 mmhg, Chest Pain=0 Right Pulses: Acosta Ped=3, Femoral=3, Radial=3 10:56:38 Left Pulses: Acosta Ped=3, Femoral=3 Neurological: State=Alert, Ox3, ROQUE Respiration: Resp=10 B/min, SpO2=98 % Time Out. Correct patient, correct procedure, correct physician, labs, allergies, and equipment verified with cook house laborer 10:57:42 team present. Fire risk assesment completed (see hard stop sheet for coding). Time Out Conc urred by MD and individual staff in procedure. 10:58:27 Pressure channel 1 zeroed. 10:59:39 2 mg VERSED given in lab by Deloris Savage, RN in Right Antecubital via Peripheral IV. Ord ered by Abelino Leonard. 11:00:26 HR=56 bpm, GIUI=537/77 mmhg, SpO2=98.0 %, Resp=20 B/min 50 mcg FENTANYL given in lab by Deloris Savage, RN in Right Antecubital via Peripheral IV. Ord ered by Horacio 00:39 Abelino. 11:00:53 Case Start 11:00:57 20 mL 1% XYLOCAINE given in lab by Deloris Savage, RN via Subcutaneous. Ordered by Abelino Leonard. 11:02:21 Access site was Right Radial Artery . A SHEATH, FR6 RADIAL PRELUDE EASE 11CM FR 6 was advanced into the Radial (right) using the Perc utaneous ::36 technique. 11:03:07 In the Radial (right) the SHEATH, FR6 RADIAL PRELUDE EASE 11CM FR [address] by Abelino Leonard. 11:05:08 200 mcg NTG (IC) given in lab by Abelino Leonard in Right Radial via Intra-arterial. Ordered by Abelino Leonard. 11:05:28 HR=61 bpm, CZAX=040/73 mmhg, SpO2=95.0 %, Resp=18 B/min A JR 5.0 INFINITI CATHETER FR 5 was advanced over a wire. OMNIPAQUE, 350 MG, 150ML 150ML was us ed for ::36 injections. Recorded Pressure: Ao, HR=64, Condition=Condition 1 11:07:42 (Aorta) Ao 98/64/80 11:08:44 5000 units HEPARIN given in lab by Minor, Abelino in Right Antecubital via Peripheral IV. O rdered by Abelino Leonard. 11:08:58 The RCA was injected and visualized at various angles. OMNIPAQUE, 350 MG, 150ML 150ML used . After removing the current catheter a JL 3.5 INFINITI CATHETER FR 5 was advanced over a WIRE, E XCHANGE 260CM 11:09:36 3MMJ 260CM. 11:10:29 HR=61 bpm, YLDU=650/57 mmhg, SpO2=94 %, Resp=16 B/min 11:12:01 The LCA was injected and visualized at various angles. OMNIPAQUE, 350 MG, 150ML 150ML used . 11:15:24 HR=67 bpm, XOAV=192/70 mmhg, SpO2=93.0 %, Resp=14 B/min After removing the current catheter a JR 5.0 GUIDE CATHETER FR 6 was advanced over a WIRE, EXCH ALYSSA 260CM 11:17:55 3MMJ 260CM. 11:18:44 The RCA was injected and visualized at various angles. OMNIPAQUE, 350 MG, 150ML 150ML used . 15 mL ANGIOMAX BOLUS given in lab by Deloris Savage RN in Right Antecubital via Peripheral IV . Ordered by Horacio 11:19:38 Abelino. 11:20:25 HR=62 bpm, VUUG=582/67 mmhg, Resp=18 B/min 11:20:33 A WIRE, RUNTHROUGH NS FLOPPY .014 180CM 180CM was inserted via Radial (right). 1.75 mg/kg/hr ANGIOMAX DRIP given in lab by Deloris Savage RN in Right Antecubital via Periph eral IV. Pump/Drip 11:23:22 Flow = 34.48 ml/hr using NaCl .9 with a concentration of 250 mg in 50 ml. Ordered by Bienvenido Leonard. A BALLOON, 3.5 X 10MM EUPHORA 3.5 X 10 was inserted over WIRE, RUNTHROUGH NS FLOPPY .014 180CM 180CM 11:24:31 via the RCA. A BALLOON, 3.5 X 10MM EUPHORA 3.5 X 10 over a WIRE, RUNTHROUGH NS FLOPPY .014 180CM 180CM in th e RCA 11:25:05 Prox was inflated using a 30 EDITA INDEFLATOR at 14 edita for 10 sec. 11:25:26 HR=62 bpm, DPMM=819/75 mmhg, SpO2=96.0 %, Resp=16 B/min A BALLOON, 3.5 X 10MM EUPHORA 3.5 X 10 over a WIRE, RUNTHROUGH NS FLOPPY .014 180CM 180CM in th e RCA 11:25:37 Prox was inflated using a 30 EDITA INDEFLATOR at 14 edita for 10 sec. 11:26:14 Balloon Removed. A BALLOON, 3.0 X 12MM EUPHORA 12MM was inserted over WIRE, RUNTHROUGH NS FLOPPY .014 180CM 180C M via 11:26:30 the RCA. A BALLOON, 3.0 X 12MM EUPHORA 12MM over a WIRE, RUNTHROUGH NS FLOPPY .014 180CM 180CM in the RC A Dist 11:28:04 was inflated using a 30 EDITA INDEFLATOR at 14 edita for 10 sec. A BALLOON, 3.0 X 12MM EUPHORA 12MM over a WIRE, RUNTHROUGH NS FLOPPY .014 180CM 180CM in the RC A Dist 11:28:28 was inflated using a 30 EDITA INDEFLATOR at 14 edita for 10 sec. 11:28:51 Balloon Removed. 11:30:57 HR=65 bpm, DEIP=960/92 mmhg, SpO2=96 %, Resp=18 B/min A STENT, 2.75 22MM RENATO 2.75 22MM was advanced through a JR 5.0 GUIDE CATHETER FR 6 over a WIRE , 11:31:14 RUNTHROUGH NS FLOPPY .014 180CM 180CM. A STENT, 2.75 22MM RENATO 2.75 22MM was deployed using a 30 EDITA INDEFLATOR at 14 atmospheres for 10 seconds 11:32:12 in the RCA Dist. 11:32:43 Delivery device removed 11:32:47 200 mcg NTG (IC) given in lab by Abelino Leonard via Intra-coronary. Ordered by Kelle Leonard en. A STENT, 5.0 22MM RENATO 5.0 22MM was advanced through a JR 5.0 GUIDE CATHETER FR 6 over a WIRE, 11:35:10 RUNTHROUGH NS FLOPPY .014 180CM 180CM. 11:35:28 HR=62 bpm, PKWX=949/72 mmhg, SpO2=94 %, Resp=20 B/min A STENT, 5.0 22MM RENATO 5.0 22MM was deployed using a 30 EDITA INDEFLATOR at 12 atmospheres for 12 seconds in 11:35:54 the RCA Prox. 11:36:48 Delivery device removed 11:36:52 200 mcg NTG (IC) given in lab by Abelino Leonard via Intra-coronary. Ordered by Kelle Leonard 11:37:54 Wire removed After removing the current catheter a XB 3.5 GUIDE CATHETER FR 6 was advanced over a WIRE, EXC HANGE 260CM 11:38:11 3MMJ 260CM. 11:40:29 HR=56 bpm, ABAR=374/81 mmhg, SpO2=98.0 %, Resp=9 B/min 11:41:55 The LCA was injected and visualized at various angles. OMNIPAQUE, 350 MG, 150ML 150ML use d. 11:42:28 A WIRE, RUNTHROUGH NS FLOPPY .014 180CM 180CM was inserted via Radial (right). 11:46:03 Wire removed, Unable to cross lesion. 11:46:09 HR=58 bpm, FAEG=646/82 mmhg, SpO2=97.0 %, Resp=16 B/min 11:46:28 Catheter was removed over J wire. 11:46:53 Case End (Physician broke scrub) Radial Compression Device Used. 13 mLs of air placed in BAND, RADIAL COMPRESSION TR SHORT 24 2 4CM. Affected 11:49:16 hand 94 % O2 saturation. 11:50:29 HR=52 bpm, NHCP=190/82 mmhg, SpO2=96.0 %, Resp=11 B/min 11:50:33 Cine recording checked. 11:50:54 Implantable Device card placed in patient's chart. 11:52:35 600 mg PLAVIX given in lab by Demetri Horton RN via Oral. Ordered by Abelino Leonard. 11:57:09 Patient moved to bed. 11:58:06 Patient transported to [facility] [place]. 11:58:25 Bedside Report will be given. 11:58:31 No case complications noted. Assessment: Final Case, HR=52 BPM, Rhythm=sb, COUS=507/82 mmhg, Chest Pain=0 Right Pulses: Acosta Ped=3, Femoral=3, Radial=3 11:58:56 Left Pulses: Acosta Ped=3, Femoral=3 Neurological: State=Alert, Ox3, ROQUE Respiration: Resp=11 B/min, SpO2=96 % End Study - Contrast Media Used In Study Contrast Total Opened (mL) Total Used (mL) Total Wasted (mL) Omnipaque 125 125 0 End Study - Maximum Contrast Load Max Contrast Load (mL) 492.5 End Study - Radiation Exposure Fluoro Time Fluoro Dose (mGy) Cine Dose (uGym2) (minutes) 9.9 7849 79889 End Study - Sheaths Sheaths Pulled By Sheath Hold Time (min) Blanca aDley End Study - Patient Disposition Complications Transferred To Interventional Outcome No Critical Care Bed successful
[2017-11-30] MEDS ORDERED: Iohexol 350 MG/ML 100 ML Vial (for Cath Lab) IVCONTRAST ONE (12:32)
[2017-11-30] MEDS ORDERED: Iohexol 350 MG/ML 50 ML Vial (for Cath Lab) IVCONTRAST ONE (12:32)
--- NOTE | 2017-11-30 12:57 | P.PNIM ---
Subjective Interval history: Pt underwent LHC this morning which revealed severe two-vessel CAD involving the right coronary artery and first obtuse marginal branch s/p 2 DOC in the right coronary artery. Also noted chronic occlusion of the first obtuse marginal branch Pt is seen post-procedure and is doing well. No complaints of chest pain currently Pts HR has been consistently in the 50-60s on telemetry Physical Exam Vital signs: Vital Signs 11/29/17 13:56 11/29/17 16:19 11/29/17 18:00 Temperature Pulse Rate 64 59 L 72 Respiratory Rate 16 16 23 Blood Pressure 125/65 114/74 124/69 Pulse Oximetry 98 98 96 11/29/17 19:00 11/29/17 19:25 11/29/17 20:00 Temperature 98.9 F Pulse Rate 72 64 Respiratory Rate 17 25 H Blood Pressure 119/67 142/69 H Pulse Oximetry 97 97 96 11/29/17 21:00 11/29/17 22:00 11/29/17 23:00 Temperature Pulse Rate 62 60 56 L Respiratory Rate 22 23 19 Blood Pressure 135/62 111/53 L 116/72 Pulse Oximetry 96 11/30/17 00:00 11/30/17 01:00 11/30/17 02:00 Temperature 98.0 F Pulse Rate 54 L 65 66 Respiratory Rate 22 16 16 Blood Pressure 120/67 108/62 108/62 Pulse Oximetry 97 96 11/30/17 03:00 11/30/17 04:00 11/30/17 05:00 Temperature 97.7 F Pulse Rate 54 L 52 L 54 L Respiratory Rate 19 18 17 Blood Pressure 111/67 108/62 118/75 Pulse Oximetry 96 96 96 11/30/17 06:00 11/30/17 07:00 11/30/17 08:00 Temperature 98.4 F Pulse Rate 60 63 62 Respiratory Rate 26 H 20 Blood Pressure 110/65 130/67 121/76 Pulse Oximetry 95 98 11/30/17 09:00 11/30/17 10:00 Temperature Pulse Rate 56 L 55 L Respiratory Rate 20 20 Blood Pressure 145/84 H 120/74 Pulse Oximetry 99 96 Intake & Output 11/29/17 11/30/17 11/30/17 18:59 06:59 18:59 Intake Total 240 / 240 260 / 260 Output Total 650 / 650 Balance 240 / 240 -650 / -650 260 / 260 Weight 98.6 kg 98.8 kg 98.5 kg Intake: IV 10 / 10 Heparin/NS PF Inj 1,000 ML @ 0 10 / 10 mls/hr .ROUTE .THE MELT ONE Rx#: [id number] Oral 240 / 240 Anesthesia Amount 250 / 250 Output: Urine 650 / 650 Other: Date of Last Bowel Movement 11/29/17 11/29/17 11/29/17 Weight On Admission 99.8 kg Narrative: GENERAL: Well-developed well-nourished. In no acute distress. CARDIAC: Regular rate and rhythm. No murmur appreciated. RESP: Clear to auscultation bilaterally. ABD: +BS, soft ND/NT EXT: No clubbing or cyanosis. No edema. Results - Labs CBC & Chem 7: 11/30/17 04:42 11/29/17 12:00 Laboratory Results - last 24 hr 11/29/17 11/29/17 11/29/17 12:00 12:00 18:00 WBC RBC Hgb Hct MCV MCH MCHC RDW Plt Count MPV PT 10.8 INR 1.1 APTT 27.9 D-Dimer Quant (PE/DVT) 0.98 H POC Glucose Total Creatine Kinase Troponin I B-Natriuretic Peptide 15 Nasal Screen MRSA (PCR) Not detected 11/29/17 11/29/17 11/29/17 18:11 18:11 22:30 WBC RBC Hgb Hct MCV MCH MCHC RDW Plt Count MPV PT INR APTT 64.6 H D D-Dimer Quant (PE/DVT) POC Glucose Total Creatine Kinase 233 197 Troponin I 0.20 H 0.21 H B-Natriuretic Peptide Nasal Screen MRSA (PCR) 11/30/17 11/30/17 11/30/17 00:30 04:42 04:42 WBC 6.7 RBC 4.73 Hgb 14.7 Hct 41.5 MCV 87.8 MCH 31.1 MCHC 35.4 RDW 12.7 Plt Count 146 L MPV 10.5 PT INR APTT 47.1 H D D-Dimer Quant (PE/DVT) POC Glucose Total Creatine Kinase 157 Troponin I 0.19 H B-Natriuretic Peptide Nasal Screen MRSA (PCR) 11/30/17 11/30/17 04:42 10:35 WBC RBC Hgb Hct MCV MCH MCHC RDW Plt Count MPV PT INR APTT 52.9 H D-Dimer Quant (PE/DVT) POC Glucose 111 H Total Creatine Kinase Troponin I B-Natriuretic Peptide Nasal Screen MRSA (PCR) - Imaging Impressions Chest CTA 11/29/17 13:14 CONCLUSION: 1. Isolated, subpleural cyst posteriorly in the right upper lung. Lungs are otherwise clear. 2. No pulmonary embolus. 3. 7 mm right renal artery aneurysm. Assessment and Plan - Assessment (1) Angina pectoris, unstable Code(s): I20.0 - Unstable angina Status: Acute Plan: Unstable Angina Elevated troponin - Pt is a 61 y/o male with HTN, HLD, GERD, and spontaneous intracranial aneurysmal bleeding about 15 years ago. - [place] [facility] [place] for chest tightness and shortness of breath with exertion x 2-1/2 weeks. He states symptoms last longer than 5 minutes and are relieved with rest. - He was noted to have elevated troponins approximately 0.2 x 4. EKG with NSR. - Chest CT (11/29/17): 1. Isolated, subpleural cyst posteriorly in the right upper lung. Lungs are otherwise clear. 2. No pulmonary embolus. 3. 7 mm right renal artery aneurysm. - LHC (11/30/17) revealed severe two-vessel CAD involving the right coronary artery and first obtuse marginal branch s/p 2 DOC in the right coronary artery. Also noted chronic occlusion of the first obtuse marginal branch - Pt was cleared for discharge from a Cardiology standpoint post-procedure. - Pt recommended to be on Plavix/ASA/Statin - Discussed the case with Dr. Leonard post-procedure regarding his HR being in the 50-60's and he recommends holding the BB for now due to bradycardia. - Pt will need to followup with Dr. Leonard in 2 weeks - Pt will need to followup with his PCP, Dr. Wright, in 1 week. 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 - Pt had incidental finding of a 7 mm right renal artery aneurysm on CTA, he will followwup with Dr. Leonard regarding this as well. - Case discussed with Dr. Marroquin from and he recommended repeat imaging as an outpt to monitor stability of the aneurysm, specifically an MRA [id number] (2) Hypertension Code(s): I10 - Essential (primary) hypertension Status: Acute (3) Hyperlipidemia Code(s): E78.5 - Hyperlipidemia, unspecified Status: Acute - Attending Attestation Patient examined. Assessment and plan formulated with Fiorella Sanchez PA-C. I agree with the above.
--- NOTE | 2017-11-30 15:01 | ECHRPT ---
Indication: Chest pain, unspecified CONCLUSIONS The left ventricular systolic function is normal with an estimated ejection fraction in the range of 60-65%. Wall thickness is normal. Normal left ventricular size. There is trace tricuspid valve regurgitation. The estimated pulmonary arterial pressure is 22.1 mmHg. BP: / HR: 60 Rhythm: Sinus MEASUREMENTS (Male / Female) Normal Values Technical Quality:Fair 2D ECHO LV Diastolic Diameter PLAX 4.7 cm 4.2 - 5.9 / 3.9 - 5.3 cm LV Systolic Diameter PLAX 3.4 cm IVS Diastolic Thickness 1.1 cm 0.6 - 1.0 / 0.6 - 0.9 cm LVPW Diastolic Thickness 1.1 cm 0.6 - 1.0 / 0.6 - 0.9 cm LV Relative Wall Thickness 0.5 LVOT Diameter 2.1 cm M-MODE Aortic Root Diameter MM 3.7 cm LA Systolic Diameter MM 3.3 cm LA Ao Ratio MM 0.9 AV Cusp Separation MM 2.0 cm DOPPLER AV Peak Velocity 130.0 cm/s AV Peak Gradient 6.8 mmHg LVOT Peak Velocity 112.0 cm/s LVOT Peak Gradient 5.0 mmHg AV Area Cont Eq pk 3.0 cm Mitral E Point Velocity 62.2 cm/s Mitral A Point Velocity 70.1 cm/s Mitral E to A Ratio 0.9 LV E' Lateral Velocity 15.8 cm/s Mitral E to LV E' Lateral Ratio 3.9 LV E' Septal Velocity 5.6 cm/s Mitral E to LV E' Septal Ratio 11.2 TR Peak Velocity 174.0 cm/s TR Peak Gradient 12.1 mmHg Right Atrial Pressure 10.0 mmHg Pulmonary Artery Systolic Pressu 22.1 mmHg Right Ventricular Systolic Press 22.1 mmHg PV Peak Velocity 137.0 cm/s PV Peak Gradient 7.5 mmHg FINDINGS LEFT VENTRICLE The left ventricular systolic function is normal with an estimated ejection fraction in the range of 60-65%. Wall thickness is normal. Normal left ventricular size. RIGHT VENTRICLE Normal right ventricular size and systolic function. LEFT ATRIUM The left atrial size is normal. RIGHT ATRIUM The right atrial size is normal. ATRIAL SEPTUM Normal atrial septal thickness without atrial level shunting by limited color doppler interrogation. AORTA The aortic root and proximal ascending aorta are normal in size on limited imaging. MITRAL VALVE Structurally normal mitral valve. No mitral valve stenosis or regurgitation. AORTIC VALVE Trileaflet aortic valve. No aortic valve stenosis or regurgitation. TRICUSPID VALVE There is trace tricuspid valve regurgitation. The estimated pulmonary arterial pressure is 22.1 mmHg. PULMONARY VALVE No pulmonary valve regurgitation or stenosis. VESSELS The inferior vena cava is normal in size. PERICARDIUM No pericardial effusion. Abelino Leonard MD, FACC (Electronically Signed) Final Date:30 November 2017 15:00
[2017-11-30 15:33] VITALS: BP 128/75; PULSE 60; TEMP 98.2; O2SAT 100
--- NOTE | 2017-11-30 16:38 | ECG ---
Date Performed: 11/29/2017 Time Performed: 12:05:56 PTAGE: 61 years EKG: Sinus rhythm REPOLARIZATION ABNORMALITY PREVIOUS TRACING : 11/19/2006 15.37 DOCTOR: Thien Means Interpretating Date/Time 11/30/2017 16:36:20
--- NOTE | 2017-11-30 16:38 | ECG ---
Date Performed: 11/30/2017 Time Performed: 04:54:12 PTAGE: 61 years EKG: SINUS BRADYCARDIA REPOLARIZATION ABNORMALITY BORDERLINE ECG PREVIOUS TRACING : 11/29/2017 22.22 DOCTOR: Thien Means Interpretating Date/Time 11/30/2017 16:38:09
--- NOTE | 2017-11-30 16:38 | ECG ---
Date Performed: 11/29/2017 Time Performed: 22:22:47 PTAGE: 61 years EKG: SINUS BRADYCARDIA REPOLARIZATION ABNORMALITY BORDERLINE ECG PREVIOUS TRACING : 11/29/2017 18.05 DOCTOR: Thien Means Interpretating Date/Time 11/30/2017 16:37:35
--- NOTE | 2017-11-30 16:38 | ECG ---
Date Performed: 11/29/2017 Time Performed: 18:05:17 PTAGE: 61 years EKG: Sinus rhythm NONSPECIFIC T-WAVE ABNORMALITY REPOLARIZATION ABNORMALITY BORDERLINE ECG PREVIOUS TRACING : 11/29/2017 12.05 DOCTOR: Thien Means Interpretating Date/Time 11/30/2017 16:37:12
[2017-11-30] MEDS ORDERED: Metoprolol Tartrate 25 MG Tablet PO SCH (21:00)
== END 2017-11-30 16:50 | disposition home or self-care (01) ==
LOC: PHED 10:45 → PHEDA 15:37 → PHICU 17:41 → HIMC 11-30 06:55
PROVIDERS: ADMIT Hospitalist; ATTEND Hospitalist